=== PATIENT | female | born 1990 ===

== ENCOUNTER → 2021-12-04 13:47 | Outpatient (CLI) | payer MEDICAID, OTHER, SELFPAY ==
--- NOTE | 2021-12-04 | DI.US.S_ITS ---
LIMITED ULTRASOUND OF RIGHT BREAST: 12/04/2021 CLINICAL: Occasional right breast pain. Comparison is made to exam dated: 12/04/2021 mammogram - [facility]. Real-time ultrasound of the right breast 12-2 o'clock region was performed. Egan scale images of the real-time examination were reviewed. No significant abnormalities were seen sonographically in the right breast. IMPRESSION: NEGATIVE There is no sonographic evidence of malignancy. There is no abnormality seen in the right breast to correspond with the pain, however, clinical followup is recommended. This exam was interpreted at Station ID: [id number]. Electronically Signed By: Conrado goodman/malvin:12/04/2021 16:37:29 letter sent: Clinical Evaluation Ultrasound BI-RADS: 1 Negative
--- NOTE | 2021-12-04 | DI.MG.S_ITS ---
BILATERAL DIGITAL DIAGNOSTIC MAMMOGRAM 3D/2D: 12/04/2021 CLINICAL: Baseline. Right breast pain. No prior exams were available for comparison. There are scattered fibroglandular elements in both breasts. No significant masses, calcifications, or other findings are seen in either breast. IMPRESSION: INCOMPLETE: NEEDS ADDITIONAL IMAGING EVALUATION There is no abnormality seen in the right breast to correspond with the pain, however, ultrasound is recommended. This exam was interpreted at Station ID: [id number]. NOTE: For mammograms, a report in lay terms will be sent to the patient. Approximately 15% of breast malignancies will not be visualized mammographically. In the management of a palpable breast mass, a negative mammogram must not discourage biopsy of a clinically suspicious lesion. Electronically Signed By: Conrado goodman/malvin:12/04/2021 16:34:42 ACR BI-RADS Category 0: Incomplete [id number]
== END ==
PROVIDERS: Referring Provider Physician Assistant; Visit Provider Physician Assistant
DX: N64.4 Mastodynia (principal); R92.2 Inconclusive mammogram
CPT/HCPCS: 76642; 77066; G0279